=== PATIENT | male | born 1965 | race Caucasian/White ===

== ENCOUNTER 2022-09-18 12:20 | Inpatient (IN) | payer OTHER ==
[~2022-09-18] VITALS: Ht 167.6 cm; Wt 71.0 kg
[2022-09-18] MEDS ORDERED: HEPARIN SODIUM,PORCINE 5,000 UNITS/ML VIAL ONE (12:37)
[2022-09-18] MEDS ORDERED: NITROGLYCERIN 0.4 MG SUBLINGUAL TABLET #25 SL ONE ×2 (12:38→12:45)
[2022-09-18] MEDS ORDERED: LIDOCAINE/PF 1% 30 ML VIAL ONE (12:39)
[2022-09-18] MEDS ORDERED: IOHEXOL 300 MG/ML 100 ML VIAL ONE ×2 (12:39→14:01)
[2022-09-18] MEDS ORDERED: SODIUM BICARBONATE 50 MEQ/50 ML VIAL ONE (12:39)
[2022-09-18] MEDS ORDERED: HEPARIN SODIUM 1000 UNITS/NS 1,000 ML ONE (12:39)
[2022-09-18] MEDS ORDERED: ASPIRIN 81 MG CHEWABLE TABLET PO ONE (12:45)
[2022-09-18] MEDS ORDERED: ONDANSETRON HCL 4 MG/2 ML VIAL IVP ONE (12:45)
[2022-09-18] MEDS ORDERED: MORPHINE SULFATE 4 MG/ML SYRINGE IVP ONE (12:45)
[2022-09-18] MEDS ORDERED: HEPARIN SODIUM,PORCINE 5,000 UNITS/ML VIAL IVP ONE (12:45)
[2022-09-18 12:51] LABS: BASOPHILS % (AUTO) 0.9 % (0.0-2.0); EOSINOPHILS % (AUTO) 2.6 % (1.0-6.0); HEMATOCRIT 40.8 % (41-53); HEMOGLOBIN 13.5 g/dL (13.5-17.5); LYMPHOCYTES # (AUTO) 2.8 K/uL (1.0-4.8); LYMPHOCYTES % (AUTO) 24.4 % (22.0-44.0); MEAN CORPUSCULAR HEMOGLOBIN 29.2 pg (26.0-34.0); MEAN CORPUSCULAR HGB CONC 33.1 G/dL (31.0-37.0); MEAN CORPUSCULAR VOLUME 88 fL (80-100); MONOCYTES # (AUTO) 0.6 K/uL (0.1-1.0); MONOCYTES % (AUTO) 4.8 % (2.0-9.0); NEUTROPHILS # (AUTO) 7.8 K/uL (1.8-7.7); NEUTROPHILS % (AUTO) 67.3 % (40.0-70.0); PLATELET COUNT (AUTO) 419 K/uL (150-450); RED BLOOD CELL COUNT(AUTO) 4.63 MIL/uL (4.50-5.90); RED CELL DISTRIBUTION WIDTH 13.4 % (11.5-14.5)
[2022-09-18 12:57] LABS: CALCIUM, TOTAL 9.3 mg/dL (8.8-10.5); CREATININE 1.91 mg/dL (0.60-1.30); POTASSIUM 4.1 mmol/L (3.5-5.1)
[2022-09-18 12:59] VITALS: BP 139/63
[2022-09-18] MEDS ORDERED: FentaNYL CITRATE PF 100 MCG/2 ML VIAL ONE ×2 (13:00→13:41)
[2022-09-18] MEDS ORDERED: MIDAZOLAM HCL 2 MG/2 ML VIAL ONE ×2 (13:01→13:41)
[2022-09-18 13:04] LABS: ALBUMIN 2.6 g/dL (3.4-5.0); BILIRUBIN,TOTAL 0.3 mg/dL (0.1-1.0); TOTAL PROTEIN, SERUM 7.1 g/dL (6.4-8.2)
[2022-09-18 13:05] LABS: INR 0.9 (0.9-1.1); PROTHROMBIN TIME 9.7 SEC (9.4-11.6)
[2022-09-18] MEDS ORDERED: NITROGLYCERIN 50 MG/D5% WATER 250 ML ONE (13:08)
[2022-09-18] MEDS ORDERED: VERAPAMIL HCL 2.5 MG/ML 2 ML VIAL ONE (13:08)
[2022-09-18] MEDS ORDERED: DEXTROSE 50%-WATER 25 GM/50 ML SYRINGE IVP PRN (13:15)
[2022-09-18] MEDS ORDERED: ACETAMINOPHEN 325 MG TABLET PO PRN (13:15)
[2022-09-18] MEDS ORDERED: MORPHINE SULFATE 2 MG/ML SYRINGE IVP PRN (13:15)
[2022-09-18] MEDS ORDERED: OxyCODONE HCL/ACETAMINOPHEN 5-325 MG TABLET PO PRN (13:15)
[2022-09-18] MEDS ORDERED: HEPARIN SODIUM 1000 UNITS/NS 1,000 ML IARTER ONE (13:30)
[2022-09-18] MEDS ORDERED: NITROGLYCERIN/D5W 50 MG/250 ML IV BOTTLE IARTER ONE ×2 (13:30→13:45)
[2022-09-18] MEDS ORDERED: IOHEXOL 300 MG/ML 100 ML VIAL IARTER ONE (13:30)
[2022-09-18] MEDS ORDERED: LIDOCAINE 1% 30 ML/SOD BICARB 8.4% 4 ML SQ ONE (13:30)
[2022-09-18] MEDS ORDERED: MIDAZOLAM HCL 2 MG/2 ML VIAL IVP ONE ×2 (13:30→13:45)
[2022-09-18] MEDS ORDERED: FentaNYL CITRATE PF 100 MCG/2 ML VIAL IVP ONE ×2 (13:30→13:45)
[2022-09-18] MEDS ORDERED: VERAPAMIL HCL 2.5 MG/ML 2 ML VIAL IARTER ONE (13:45)
[2022-09-18] MEDS ORDERED: HEPARIN SODIUM,PORCINE 1,000 UNITS/ML 10 ML VIAL IVP ONE (14:00)
[2022-09-18] MEDS ORDERED: TICAGRELOR 90 MG TABLET ONE (14:17)
[2022-09-18 14:29] VITALS: BP 154/70
[2022-09-18] MEDS ORDERED: TICAGRELOR 90 MG TABLET PO ONE (14:30)
[2022-09-18] MEDS ORDERED: SODIUM CHLORIDE 0.9% 2,000 ML IV ONE (14:45)
[2022-09-18 15:03] VITALS: BP 141/60
[2022-09-18] MEDS: HEPARIN SODIUM,PORCINE 5,000 UNITS/ML VIAL SQ SCH (16:00)
[2022-09-18 17:06] LABS: GLUCOMETER DEV NAME(LOC) 5N.1C; GLUCOSE,POINT OF CARE 129 MG/DL (70-110)
[2022-09-18] MEDS: INSULIN LISPRO 100 UNITS/ML SQ PRN ×2 (17:55→21:22)
[2022-09-18 19:21] VITALS: BP 137/68
[2022-09-18] MEDS: CARVEDILOL 6.25 MG TABLET PO SCH (21:20)
[2022-09-18] MEDS: TICAGRELOR 90 MG TABLET PO SCH (21:21)
[2022-09-18 22:56] LABS: GLUCOMETER DEV NAME(LOC) 5N.1C; GLUCOSE,POINT OF CARE 230 MG/DL (70-110)
[2022-09-18 23:13] VITALS: BP 121/51
[2022-09-19] MEDS: HEPARIN SODIUM,PORCINE 5,000 UNITS/ML VIAL SQ SCH ×2 (01:12→08:56)
[2022-09-19 03:33] VITALS: BP 108/52
[2022-09-19 06:26] LABS: GLUCOMETER DEV NAME(LOC) 5S.1B; GLUCOSE,POINT OF CARE 138 MG/DL (70-110)
[2022-09-19 07:18] VITALS: BP 137/58
[2022-09-19] MEDS: CARVEDILOL 6.25 MG TABLET PO SCH (08:56)
[2022-09-19] MEDS: TICAGRELOR 90 MG TABLET PO SCH (08:56)
[2022-09-19] MEDS ORDERED: ATORVASTATIN CALCIUM 40 MG TABLET PO SCH (09:00)
[2022-09-19] MEDS ORDERED: PANTOPRAZOLE SODIUM 40 MG DR TABLET PO SCH (09:00)
[2022-09-19 11:08] VITALS: BP 139/52
[2022-09-19] MEDS ORDERED: CARV6 PO (12:10)
[2022-09-19] MEDS ORDERED: ASPI81TA87 PO (12:10)
[2022-09-19] MEDS ORDERED: TICA90TA PO (12:10)
[2022-09-19] MEDS ORDERED: ATOR40TA71 PO (12:10)
[2022-09-19] MEDS: INSULIN LISPRO 100 UNITS/ML SQ PRN (12:38)
[2022-09-19 15:17] LABS: GLUCOMETER DEV NAME(LOC) 5S.2B; GLUCOSE,POINT OF CARE 306 MG/DL (70-110)
== END 2022-09-19 14:50 | disposition home or self-care (01) | DRG 247 ==
LOC: EMS 12:28 → 5S 14:45
PROVIDERS: ADMIT Internal Medicine; ATTEND Internal Medicine
PROC: B2111ZZ Fluoroscopy of Multiple Coronary Arteries using Low Osmolar Contrast (ICD-10-PCS; principal; 2022-09-18)
PROC: 027136Z Dilation of Coronary Artery, Two Arteries with Three Drug-eluting Intraluminal Devices, Percutaneous Approach (ICD-10-PCS; 2022-09-18)
DX: I25.110 Atherosclerotic heart disease of native coronary artery with unstable angina pectoris (principal); E11.9 Type 2 diabetes mellitus without complications; Z83.3 Family history of diabetes mellitus; Z79.899 Other long term (current) drug therapy
CPT/HCPCS: 37236; 71045; 80053; 82550; 82962; 83880; 84484; 85025; 85610; 85730; 92920; 92928; 93005; 93306; 99291; G0378; J1644; J2250; J2270; J2405; J3010; J3490; J7030; Q9967; 36415-L1; 36415-TC; Z7610